=== PATIENT | male | born 1950 | race Caucasian/White ===

== ENCOUNTER → 2018-02-12 11:04 | Outpatient (CLI) | payer MEDICARE, SELFPAY ==
--- NOTE | 2018-02-12 11:15 | XR_ITS ---
XR chest 2V HISTORY: ITS.REASON: COPD ORDERING PHYSICIAN: Alea Redding PATIENT AGE: 67 years COMPARISON: 06/30/2013 FINDINGS: The cardiomediastinal silhouette and pulmonary vascularity are within normal limits. There is COPD with hyperinflation and attenuation of the pulmonary vessels. There is consolidation in the right middle lobe inferiorly consistent with pneumonia. Recommend follow until clear in this patient with emphysema. There are chronic changes in the lung bases No acute bony abnormalities. IMPRESSION: Right middle lobe pneumonia with COPD and chronic changes. Recommend follow until clear
== END ==
PROVIDERS: PCP Nurse Practitioner; Visit Provider Nurse Practitioner Family
DX: J44.1 Chronic obstructive pulmonary disease with (acute) exacerbation (principal)
CPT/HCPCS: 71046

== ENCOUNTER → 2019-10-21 15:09 | Outpatient (CLI) | payer MEDICARE, SELFPAY ==
[2019-10-21 21:16] LABS: Prostate Specific Ag Screen 0.2 ng/ml (0.0-4.0)
== END ==
PROVIDERS: Visit Provider Urology
DX: Z12.5 Encounter for screening for malignant neoplasm of prostate (principal)
CPT/HCPCS: 36415; G0103

== ENCOUNTER 2021-02-20 09:22 | Emergency (ER) | payer MEDICARE, SELFPAY ==
[2021-02-20 09:45] VITALS: PULSE 68; RESP 19; TEMP 36.8; O2SAT 95; BMI 34.0
[2021-02-20 09:51] VITALS: BP 110/73; PULSE 68; RESP 19; TEMP 36.8; O2SAT 95
[2021-02-20 09:59] LABS: UTC Strep Screen (Rapid) Negative (Negative)
--- NOTE | 2021-02-20 10:07 | HMH.EDUTC ---
[facility] [place] Clinical Impression: Vertigo, Elevated glucose Disposition: Home, Self-Care Condition on Discharge: Good Instructions: DI for Vertigo Additional Instructions: Take meds as prescribed. Try to hydrate as much as possible. Follow up with Nishi if not improving. Your blood glucose ( sugar ) was a little elevated today, but you were not fasting. Mention to Nishi at next checkup so she can do more labs if she desires. Prescriptions: Meclizine HCl 25 mg PO TID PRN 10 Days #30 tab PRN Reason: Vertigo Transmission Status: Pending to [facility] methylPREDNISolone [Medrol 4mg tab] 4 mg PO DIRECTED #21 tab Transmission Status: Pending to [facility] Referrals: Nishi Juan APRN [Primary Care Provider] - Time of Disposition: 10:59 Medical Decision Making - Bryan Inquiry Pt receiving controlled substance: No Vital Signs: 02/20/21 09:45 02/20/21 09:51 Temperature 98.2 F 98.2 F Temperature Source Oral Pulse Rate 68 Pulse Rate [Left] 68 Respiratory Rate 19 19 Blood Pressure 110/73 02 Sat by Pulse Oximetry 95 Oxygen Delivery Method Nasal Cannula Nasal Cannula Oxygen Flow Rate (LPM) 2 - Lab Data Lab results reviewed: Yes: I reviewed the patient's lab results. Lab Results 02/20/21 09:51: Strep Scn [facility] Negative 02/20/21 10:21: WBC 9.8, RBC 5.02, Hgb 16.1, Hct 50.3, MCV 100.0 H, MCH 32.1 H, MCHC 32.1, RDW 12.9, Plt Count 250, MPV 7.0 L, Neut % (Auto) 78.4, Lymph % (Auto) 14.6, [place] % (Auto) 6.0, Eos % (Auto) 0.6, Baso % (Auto) 0.4, Neut # (Auto) 7.7, Lymph # (Auto) 1.4, [place] # (Auto) 0.6, Eos # (Auto) 0.1, Baso # (Auto) 0.0 02/20/21 10:21: Sodium 139, Potassium 4.2, Chloride 103, Carbon Dioxide 29, Anion Gap 11.2, BUN 11, Creatinine 0.70, Estimated Creat Clear 101, Estimated GFR 111, Est GFR ( Amer) 135, Glucose 131 H, Calcium 9.0 Result diagrams: 02/20/21 10:21 02/20/21 10:21 Orders (Tests/Meds): ORDERS Category Date Time Status Covid-19 Nasal PCR ([facility]) Routine Lab 02/20/21 09:50 Received Strep Screen Confirmation Stat Micro 02/20/21 09:51 Received [facility] UTC HPI - General Stated complaint: dizzy, nausea Time Seen by Provider: 02/20/21 10:07 Mode of Arrival: Wheelchair Source of Information: Patient Limitations: No Limitations Description of Symptoms (Recalled from Triage Doc. by RN): pt c/o of dizziness and nausea. started 02/15, became some what better but now is bad again. HEENT Symptoms (Recalled from RN notes): Yes (dizziness) Resp Symptoms (Recalled from RN notes): No Skin Symptoms (Recalled from RN notes): No MS Symptoms (Recalled from RN notes): No Functional Status (Recalled from RN notes): na - History of Present Illness Provider Complaint: Patient states he had an episode of vertigo the morning of 02/15 when he got up. He felt unsteady, off balance. Went back to bed and it went away. Started yesterday morning around noon again and has not gone away. Feels off balance. Has nausea. No vomiting or diarrhea. History of COPD with O2 dependence. No SOA, wheezing, chest tightness. History of treated HTN - no chest pain, dyspnea, headache. BP good today. No history of DM. No history of anemia. No evidence of blood loss - denies melena. No rash. Vertigo worse when he turns his head to the right. Onset (ago): day(s) (5) Location: head Consistency: intermittent Relieving factors: none Exacerbating factors: none Associated symptoms: denies other symptoms Treatments prior to arrival: none - Related Data Home Medications Medication Instructions Recorded Confirmed albuterol sulfate 2.5 mg/0.5 mL 5 mg INHALATION Q4H 10/21/19 10/21/20 solution for nebulization albuterol sulfate 90 mcg/actuation 2 puff INHALATION Q4-6H PRN 10/21/19 10/21/20 aerosol inhaler aspirin 81 mg chewable tablet 81 mg PO DAILY 10/21/19 10/21/20 atorvastatin 40 mg tablet 40 mg PO DAILY 10/21/19 10/21/20 azithromycin 500 mg tablet 500 mg PO QMWF tab
[2021-02-20 10:30] LABS: Basophils % 0.4 % (0.1-2.0); Eosinophils # 0.1 K/mm3 (0.0-0.4); Eosinophils % 0.6 % (0.1-12.0); Hematocrit 50.3 % (42.0-52.0); Hemoglobin 16.1 g/dL (14.1-18.0); Lymphocytes # 1.4 K/mm3 (0.7-4.5); Lymphocytes % 14.6 % (10-50); Mean Corpuscular HGB Conc 32.1 g/dL (31.8-35.4); Mean Corpuscular Hemoglobin 32.1 pg (27.0-31.2); Monocytes # 0.6 K/mm3 (0.1-1.0); Neutrophils # 7.7 K/mm3 (1.8-7.8); Neutrophils % 78.4 % (37.0-80.0); Platelet Count 250 K/mm3 (142-424); Red Blood Count 5.02 M/mm3 (4.60-6.20); Red Cell Distribution Width 12.9 % (11.5-17.5); White Blood Count 9.8 K/mm3 (4.8-10.8)
[2021-02-20 10:36] LABS: Chloride 103 mmol/L (98-107); Potassium 4.2 mmoL/L (3.5-5.1); Sodium 139 mmol/L (136-145)
[2021-02-20 10:39] LABS: Anion Gap 11.2 mEq/L (5-15); Blood Urea Nitrogen 11 mg/dl (9-20); Carbon Dioxide 29 mmol/L (22.0-30.0); Creatinine Clearance Estimated 101 mL/min (50-200); Estimated Glomerular Filt Rate 111 ml/min (>60); GFR (African American) 135 ML/MIN (>60); Glucose 131 mg/dl (74-100)
== END 2021-02-20 11:04 | disposition home or self-care (01) ==
PROVIDERS: Emergency Provider Physician Assistant; PCP Nurse Practitioner Family
DX: R42 Dizziness and giddiness (principal); R73.9 Hyperglycemia, unspecified; J44.9 Chronic obstructive pulmonary disease, unspecified; I10 Essential (primary) hypertension; E78.5 Hyperlipidemia, unspecified; Z20.822 Contact with and (suspected) exposure to COVID-19; Z79.899 Other long term (current) drug therapy
CPT/HCPCS: G0463; 80048; 85025; 87880; 99203; C9803; U0003; U0005

== ENCOUNTER → 2021-03-17 09:46 | Outpatient (CLI) | payer MEDICARE, SELFPAY ==
--- NOTE | 2021-03-17 10:21 | CA_ITS ---
APPROVED REPORT Daycare Teacher: Alea Pascal RVT Laterality: Bilateral Study Quality: Good Indications: DIZZINESS Doppler Spectral Velocity Analysis ECA (R) 111.20/19.20 cm/s ECA (L) 123.00/19.20 cm/s dICA (R) 98.40/34.20 cm/s dICA (L) 81.30/31.00 cm/s Shelby (R) 78.10/22.50 cm/s Shelby (L) 58.80/22.50 cm/s pICA (R) 66.30/22.50 cm/s pICA (L) 52.40/26.70 cm/s dCCA (R) 54.50/10.70 cm/s dCCA (L) 67.40/18.20 cm/s pCCA (R) 78.10/13.90 cm/s pCCA (L) 81.30/22.50 cm/s Vert (R) 41.70/16.00 cm/s Vert (L) 32.20/9.70 cm/s ICA/CCA 1.80 ICA/CCA 1.21 Findings Study suggests less than 20% stenosis of the right internal cartoid artery. Study suggests less than 20% stenosis of the left internal cartoid artery. Antegrade flow seen bilateral vertebral arteries. Conclusion Study suggests less than 20% stenosis of the right internal cartoid artery. Study suggests less than 20% stenosis of the left internal cartoid artery. Antegrade flow seen bilateral vertebral arteries. Electronically signed by : James Powers MD 03/22/2021 08:38:17
== END ==
PROVIDERS: PCP Nurse Practitioner Family; Visit Provider Nurse Practitioner Family
DX: R42 Dizziness and giddiness (principal)
CPT/HCPCS: 93880

== ENCOUNTER → 2021-07-25 09:34 | Outpatient (CLI) | payer MEDICARE, SELFPAY ==
[2021-07-26 08:36] LABS: Covid-19 Nasal PCR Sendout Lex NOT DETECTED
== END ==
PROVIDERS: PCP Nurse Practitioner Family; Visit Provider Nurse Practitioner
DX: Z20.822 Contact with and (suspected) exposure to COVID-19 (principal)
CPT/HCPCS: C9803; U0004; U0005

== ENCOUNTER → 2021-08-04 11:42 | Outpatient (CLI) | payer MEDICARE, SELFPAY ==
[2021-08-04 13:14] LABS: Prostate Specific Ag Screen 0.1 ng/ml (0.0-4.0)
== END ==
PROVIDERS: PCP Nurse Practitioner Family; Visit Provider Urology
DX: Z12.5 Encounter for screening for malignant neoplasm of prostate (principal)
CPT/HCPCS: 36415; G0103

== ENCOUNTER → 2022-02-03 08:52 | Outpatient (CLI) | payer MEDICARE, SELFPAY ==
--- NOTE | 2022-02-03 08:58 | XR_ITS ---
FINAL REPORT CLINICAL HISTORY: LUMBAR BACK PAIN FINDINGS: LUMBAR SPINE Five views demonstrate no acute fracture. The disc spaces are well preserved. There is no malalignment. IMPRESSION: No acute process. Reviewed, Interpreted and Dictated by Sal Thrasher MD Transcribed by Jerrica Roberto Authenticated and [facility]
== END ==
PROVIDERS: PCP Nurse Practitioner Family; Visit Provider Nurse Practitioner Family
DX: M54.16 Radiculopathy, lumbar region (principal)
CPT/HCPCS: 72110